=== PATIENT | female | born 1995 | race Caucasian/White ===

== ENCOUNTER 2017-09-01 06:40 | Emergency (ER) | payer BC ==
[~2017-09-01] VITALS: Ht 170.2 cm; Wt 104.5 kg
[~2017-09-01 06:40] MED LIST: BIRTH CONTROL PILLS; PROMETHAZINE12.5 M5 PO; PROVENTIL0.09 MG/A1 IH
[2017-09-01] MEDS ORDERED: TAMIFLU 75MG75 MG PO (06:48)
[2017-09-01] MEDS ORDERED: ZOLOFT 100MG100 MG PO (06:48)
[2017-09-01] MEDS ORDERED: ABILIFY5 MG PO (06:48)
[2017-09-01] MEDS ORDERED: INDERAL 10MG10 MG PO (06:49)
[2017-09-01] MEDS ORDERED: PROVENTIL0.09 MG/A1 IH (07:27)
[2017-09-01] MEDS ORDERED: TUSS PO (08:36)
[2017-09-01 09:46] VITALS: BP 129/79; PULSE 103; TEMP 98.2
== END 2017-09-01 09:52 | disposition home or self-care (01) ==
LOC: COL.ER 06:40
DX: J45.909 Unspecified asthma, uncomplicated (principal); J11.1 Influenza due to unidentified influenza virus with other respiratory manifestations; F31.9 Bipolar disorder, unspecified; Z88.2 Allergy status to sulfonamides

== ENCOUNTER 2017-10-11 09:01 | Emergency (ER) | payer BC ==
[~2017-10-11] VITALS: Ht 170.2 cm; Wt 100.9 kg
[~2017-10-11 09:01] MED LIST changes: +ABILIFY 10MG TA10 MG PO; +INDERAL 10MG10 MG PO; +TAMIFLU 75MG75 MG PO; +TUSS PO; +ZOLOFT 100MG100 MG PO
[2017-10-11 09:10] VITALS: TEMP 98.1
[2017-10-11] MEDS ORDERED: LAMICTAL XR50 MG PO (09:13)
[2017-10-11 10:12] LABS: ALANINE AMINOTRANSFERASE 44 U/L (9-52); ALBUMIN 4.4 gm/dL (3.5-5.0); ALKALINE PHOSPHATASE 68 U/L (50-136); ANION GAP 11 mmol/L (7-16); AST,SGOT 18 U/L (15-37); BILIRUBIN,TOTAL 0.6 mg/dL (0.0-1.0); BLOOD UREA NITROGEN 11 mg/dL (7-17); CALCIUM 9.2 mg/dL (8.4-10.2); CARBON DIOXIDE 24 mmol/L (22-30); CHLORIDE 106 mmol/L (98-107); CREATININE, serum 0.79 mg/dL (0.52-1.25); GLUCOSE 114 mg/dL (74-106); POTASSIUM 4.3 mmol/L (3.4-5.0); SODIUM 141 mmol/L (137-145); TOTAL PROTEIN 7.7 gm/dL (6.4-8.2)
[2017-10-11 10:12] LABS: BASO # 0.1 (0.0-0.2); BASO % 0.5 % (0.0-2.0); EOS # 0.1 (0.0-0.7); GRAN # 9.8 (1.4-6.5); GRAN % 73.8 % (42.2-75.2); HEMOGLOBIN 14.4 g/dl (12.5-16.0); LYMPH # 2.3 (1.2-3.4); LYMPH % 17.3 % (20.0-51.0); MEAN CELL VOLUME 82 fl (80.0-100.0); MEAN CORPUSCULAR HEMOGLOBIN 28 pg (27.0-31.0); MEAN CORPUSCULAR HGB CONC 34 g/dl (33.0-37.0); MEAN PLATELET VOLUME 10.3 fl (7.4-10.4); MONO # 0.9 (0.1-0.6); PLATELET COUNT 365 K/mm3 (130-400); RED BLOOD COUNT 5.12 M/mm3 (4.10-5.30); REDCELL DISTRIBUTION WIDTH-CV 13.2 % (11.5-14.5)
[2017-10-11 10:13] LABS: ACETAMINOPHEN < 10 ug/mL (10-30); ALCOHOL(ethanol),MEDICAL < 10 mg/dL; SALICYLATE < 1.0 mg/dL
[2017-10-11 10:43] LABS: COLLECTION METHOD CLEAN CATCH
[2017-10-11 10:51] LABS: PH 6 (5-8); URINE APPEARANCE Clear; URINE BACTERIA Rare /hpf; URINE BILIRUBIN Negative (NEGATIVE); URINE BLOOD 1+ (NEGATIVE); URINE COLOR Yellow; URINE GLUCOSE Negative (NEGATIVE); URINE KETONE Negative (NEGATIVE); URINE LEUKOCYTE ESTERASE Trace (NEGATIVE); URINE NITRATE Negative (NEGATIVE); URINE PROTEIN(semi-quant) Negative (NEGATIVE); URINE RBC 0-2 /hpf; URINE UROBILINOGEN Negative (NEGATIVE)
[2017-10-11 10:57] LABS: TRICYCLIC ANTIDEPRESS URINE NEGATIVE
[2017-10-11 17:11] VITALS: BP 139/93
[2017-10-11 18:00] VITALS: PULSE 106
== END 2017-10-11 18:03 ==
LOC: COL.ER 09:01
PROVIDERS: Emergency Medicine; Physician Assistant
DX: F32.9 Major depressive disorder, single episode, unspecified (principal); R45.851 Suicidal ideations; J45.909 Unspecified asthma, uncomplicated; Z87.42 Personal history of other diseases of the female genital tract

== ENCOUNTER 2017-11-28 10:23 | Emergency (ER) | payer SELFPAY ==
[~2017-11-28] VITALS: Ht 170.2 cm; Wt 107.7 kg
[~2017-11-28 10:23] MED LIST changes: +LAMICTAL XR50 MG PO
[2017-11-28 10:37] VITALS: BP 139/99; TEMP 98.9
[2017-11-28] MEDS ORDERED: DEPO-PROVE150 MG/1 M (10:47)
[2017-11-28] MEDS ORDERED: PROAIR HFA0.09 MG/AC IH (11:59)
[2017-11-28 12:24] VITALS: PULSE 88
== END 2017-11-28 12:25 | disposition home or self-care (01) ==
LOC: COL.ER 10:23
DX: J06.9 Acute upper respiratory infection, unspecified (principal); J45.909 Unspecified asthma, uncomplicated; F31.9 Bipolar disorder, unspecified

== ENCOUNTER 2018-01-09 08:11 | Emergency (ER) | payer BC ==
[~2018-01-09] VITALS: Ht 170.2 cm; Wt 104.5 kg
[~2018-01-09 08:11] MED LIST changes: +DEPO-PROVE150 MG/1 M; +PROAIR HFA0.09 MG/AC IH
[2018-01-09 08:25] VITALS: BP 138/69; TEMP 97.9
[2018-01-09] MEDS ORDERED: LEXAPRO 10MG10 MG PO (08:31)
[2018-01-09] MEDS ORDERED: PREDNISONE20 MG PO (09:23)
[2018-01-09 09:32] VITALS: PULSE 96
== END 2018-01-09 09:33 | disposition home or self-care (01) ==
LOC: COL.ER 08:11
DX: J45.901 Unspecified asthma with (acute) exacerbation (principal); J06.9 Acute upper respiratory infection, unspecified; F31.9 Bipolar disorder, unspecified

== ENCOUNTER 2018-04-11 10:48 | Emergency (ER) | payer BC ==
[~2018-04-11] VITALS: Ht 170.2 cm; Wt 104.5 kg
[~2018-04-11 10:48] MED LIST changes: +LEXAPRO 10MG10 MG PO; +PREDNISONE20 MG PO
[2018-04-11 10:53] VITALS: TEMP 99.9
[2018-04-11 11:53] LABS: BASO # 0.1 (0.0-0.2); BASO % 0.7 % (0.0-2.0); EOS # 0.1 (0.0-0.7); EOS % 1.1 % (0-4.0); GRAN # 6.7 (1.4-6.5); GRAN % 68.4 % (42.2-75.2); HEMATOCRIT 42.8 % (37.0-47.0); HEMOGLOBIN 14.8 g/dl (12.5-16.0); LYMPH # 2.3 (1.2-3.4); LYMPH % 23.7 % (20.0-51.0); MEAN CELL VOLUME 81 fl (80.0-100.0); MEAN CORPUSCULAR HEMOGLOBIN 28 pg (27.0-31.0); MEAN CORPUSCULAR HGB CONC 35 g/dl (33.0-37.0); MONO # 0.6 (0.1-0.6); MONO % 5.6 % (1.7-9.3); PLATELET COUNT 360 K/mm3 (130-400); RED BLOOD COUNT 5.32 M/mm3 (4.10-5.30); REDCELL DISTRIBUTION WIDTH-CV 12.8 % (11.5-14.5)
[2018-04-11 12:02] LABS: ALANINE AMINOTRANSFERASE 26 U/L (9-52); ALBUMIN 4.3 gm/dL (3.5-5.0); ALKALINE PHOSPHATASE 72 U/L (50-136); ANION GAP 12 mmol/L (7-16); AST,SGOT 23 U/L (15-37); BILIRUBIN,TOTAL 0.4 mg/dL (0.0-1.0); BLOOD UREA NITROGEN 10 mg/dL (7-17); CALCIUM 9.1 mg/dL (8.4-10.2); CARBON DIOXIDE 26 mmol/L (22-30); CHLORIDE 100 mmol/L (98-107); CREATININE, serum 0.75 mg/dL (0.52-1.25); GLUCOSE 97 mg/dL (74-106); POTASSIUM 4.1 mmol/L (3.4-5.0); SODIUM 138 mmol/L (137-145)
[2018-04-11 12:04] LABS: ACETAMINOPHEN < 10 ug/mL (10-30); ALCOHOL(ethanol),MEDICAL < 10 mg/dL; SALICYLATE < 1.0 mg/dL
[2018-04-11 13:46] LABS: TRICYCLIC ANTIDEPRESS URINE NEGATIVE
[2018-04-11 17:21] VITALS: BP 121/78; PULSE 75
== END 2018-04-11 17:21 | disposition home or self-care (01) ==
LOC: COL.ER 10:48
PROVIDERS: Emergency Medicine
DX: R45.851 Suicidal ideations (principal); F31.9 Bipolar disorder, unspecified; J45.909 Unspecified asthma, uncomplicated

== ENCOUNTER 2018-09-10 08:54 | Emergency (ER) | payer BC ==
[~2018-09-10] VITALS: Ht 170.2 cm; Wt 122.8 kg
[2018-09-10 09:38] LABS: BASO # 0.1 (0.0-0.2); BASO % 0.6 % (0.0-2.0); EOS # 0.3 (0.0-0.7); EOS % 2.5 % (0-4.0); GRAN # 6.2 (1.4-6.5); GRAN % 61.4 % (42.2-75.2); HEMATOCRIT 42.9 % (37.0-47.0); HEMOGLOBIN 14.7 g/dl (12.5-16.0); LYMPH # 2.8 (1.2-3.4); LYMPH % 27.5 % (20.0-51.0); MEAN CELL VOLUME 81 fl (80.0-100.0); MEAN CORPUSCULAR HEMOGLOBIN 28 pg (27.0-31.0); MEAN CORPUSCULAR HGB CONC 34 g/dl (33.0-37.0); MEAN PLATELET VOLUME 10.3 fl (7.4-10.4); MONO # 0.8 (0.1-0.6); MONO % 7.7 % (1.7-9.3); PLATELET COUNT 317 K/mm3 (130-400); RED BLOOD COUNT 5.28 M/mm3 (4.10-5.30); REDCELL DISTRIBUTION WIDTH-CV 13.1 % (11.5-14.5)
[2018-09-10 09:53] LABS: ALANINE AMINOTRANSFERASE 34 U/L (9-52); ALBUMIN 4.1 gm/dL (3.5-5.0); ALKALINE PHOSPHATASE 75 U/L (50-136); ANION GAP 9 mmol/L (7-16); AST,SGOT 50 U/L (15-37); BILIRUBIN,TOTAL 0.5 mg/dL (0.0-1.0); BLOOD UREA NITROGEN 12 mg/dL (7-17); CALCIUM 9.2 mg/dL (8.4-10.2); CARBON DIOXIDE 24 mmol/L (22-30); CHLORIDE 104 mmol/L (98-107); GLUCOSE 128 mg/dL (74-106); POTASSIUM 4.3 mmol/L (3.4-5.0); SODIUM 138 mmol/L (137-145); TOTAL PROTEIN 7.5 gm/dL (6.4-8.2)
[2018-09-10 09:56] LABS: ACETAMINOPHEN < 10 ug/mL (10-30); ALCOHOL(ethanol),MEDICAL < 10 mg/dL; SALICYLATE < 1.0 mg/dL
[2018-09-10 10:13] LABS: COLLECTION METHOD CLEAN CATCH
[2018-09-10 10:22] LABS: MUCOUS Present /lpf; PH 6 (5-8); URINE APPEARANCE Clear; URINE BACTERIA None Seen /hpf; URINE BILIRUBIN Negative (NEGATIVE); URINE BLOOD Negative (NEGATIVE); URINE COLOR Yellow; URINE GLUCOSE Negative (NEGATIVE); URINE KETONE Negative (NEGATIVE); URINE LEUKOCYTE ESTERASE 1+ (NEGATIVE); URINE NITRATE Negative (NEGATIVE); URINE PROTEIN(semi-quant) 1+ (NEGATIVE); URINE UROBILINOGEN Negative (NEGATIVE)
[2018-09-10] MEDS ORDERED: CEPHALEXIN500 M1 PO (11:17)
[2018-09-10 12:02] LABS: TRICYCLIC ANTIDEPRESS URINE NEGATIVE
[2018-09-10] MEDS ORDERED: SARAFEM20 M1 PO (15:11)
[2018-09-10] MEDS ORDERED: ZYPREXA 5MG5 MG PO (15:12)
[2018-09-10 18:14] VITALS: BP 149/91; PULSE 130; TEMP 99.9
== END 2018-09-10 18:14 ==
LOC: COL.ER 08:54
PROVIDERS: Physician Assistant
DX: R45.851 Suicidal ideations (principal); N39.0 Urinary tract infection, site not specified; F31.9 Bipolar disorder, unspecified; F12.10 Cannabis abuse, uncomplicated; Z88.2 Allergy status to sulfonamides

== ENCOUNTER 2019-05-08 08:24 | Emergency (ER) | payer BC ==
[~2019-05-08] VITALS: Ht 170.2 cm; Wt 118.2 kg
[~2019-05-08 08:24] MED LIST changes: +CEPHALEXIN500 M1 PO; +SARAFEM20 M1 PO; +ZYPREXA 5MG5 MG PO
[2019-05-08 08:28] VITALS: BP 131/83; TEMP 99.2
[2019-05-08] MEDS ORDERED: DEPAKOTE 125MG125 M1 PO (08:33)
[2019-05-08] MEDS ORDERED: NEURONTIN300 MG/CAP PO (08:34)
[2019-05-08 09:40] LABS: BILIRUBIN,TOTAL 0.3 mg/dL (0.0-1.0); C-REACTIVE PROTEIN 2.1 mg/dL (0.0-0.9); CREATININE, serum 0.7 (0.52-1.25); POTASSIUM 4.2 mmol/L (3.4-5.0); TOTAL PROTEIN 7.4 gm/dL (6.4-8.2)
[2019-05-08 09:41] LABS: BASO # 0.1 (0.0-0.2); BASO % 0.6 % (0.0-2.0); EOS # 0.1 (0.0-0.7); EOS % 1.2 % (0-4.0); GRAN # 6.4 (1.4-6.5); GRAN % 64.4 % (42.2-75.2); HEMATOCRIT 40.6 % (37.0-47.0); HEMOGLOBIN 13.6 g/dl (12.5-16.0); LYMPH # 2.7 (1.2-3.4); LYMPH % 26.9 % (20.0-51.0); MEAN CELL VOLUME 82 fl (80.0-100.0); MEAN CORPUSCULAR HEMOGLOBIN 28 pg (27.0-31.0); MEAN CORPUSCULAR HGB CONC 34 g/dl (33.0-37.0); MEAN PLATELET VOLUME 10.9 fl (7.4-10.4); MONO # 0.7 (0.1-0.6); MONO % 6.6 % (1.7-9.3); PLATELET COUNT 317 K/mm3 (130-400); RED BLOOD COUNT 4.95 M/mm3 (4.10-5.30); REDCELL DISTRIBUTION WIDTH-CV 13.2 % (11.5-14.5)
[2019-05-08 10:26] LABS: COLLECTION METHOD CLEAN CATCH
[2019-05-08 10:34] LABS: PH 7 (5-8); SQUAMOUS EPITHELIAL 0-2 /hpf; URINE APPEARANCE Clear; URINE BACTERIA None Seen /hpf; URINE BILIRUBIN Negative (NEGATIVE); URINE BLOOD Negative (NEGATIVE); URINE COLOR Yellow; URINE GLUCOSE Negative (NEGATIVE); URINE KETONE Negative (NEGATIVE); URINE LEUKOCYTE ESTERASE Trace (NEGATIVE); URINE NITRATE Negative (NEGATIVE); URINE PROTEIN(semi-quant) Negative (NEGATIVE); URINE RBC None Seen /hpf; URINE UROBILINOGEN Negative (NEGATIVE)
[2019-05-08] MEDS ORDERED: DRAMAMINE LESS25 MG PO (12:21)
[2019-05-08] MEDS ORDERED: ZOFRAN ODT4 MG PO (12:21)
[2019-05-08 12:40] VITALS: PULSE 82
== END 2019-05-08 12:40 ==
LOC: COL.ER 08:24
PROVIDERS: Physician Assistant
DX: R42 Dizziness and giddiness (principal); F31.9 Bipolar disorder, unspecified; Z88.2 Allergy status to sulfonamides
CPT/HCPCS: J1885; J2405; J7030

== ENCOUNTER 2024-03-26 10:02 | Emergency (ER) | payer OTHER ==
[~2024-03-26] VITALS: Ht 170.2 cm; Wt 97.7 kg
[~2024-03-26 10:02] MED LIST changes: +CEFTIN 250250 MG/TAB PO; +DEPAKOTE 125MG125 M1 PO; +DRAMAMINE LESS25 MG PO; +NEURONTIN300 MG/CAP PO; +ZOFRAN ODT4 MG PO
[2024-03-26 10:19] VITALS: BP 117/77; TEMP 99.6
[2024-03-26] MEDS ORDERED: AMOXICILLIN 8751 TAB PO (11:51)
[2024-03-26 12:18] VITALS: PULSE 94
== END 2024-03-26 12:22 | disposition home or self-care (01) ==
LOC: COL.ER 10:02
DX: J32.9 Chronic sinusitis, unspecified (principal); J45.909 Unspecified asthma, uncomplicated; Z87.891 Personal history of nicotine dependence

== ENCOUNTER 2024-05-07 12:38 | Emergency (ER) | payer SELFPAY ==
[~2024-05-07] VITALS: Ht 170.2 cm; Wt 97.7 kg
[~2024-05-07 12:38] MED LIST changes: +AMOXICILLIN 8751 TAB PO
[2024-05-07 12:43] VITALS: TEMP 98.3
[2024-05-07] MEDS ORDERED: Morphine 4 MG/ML VIAL IV ONE (13:00)
[2024-05-07] MEDS ORDERED: NS 1,000 ML IV ONE (13:00)
[2024-05-07] MEDS ORDERED: Ondansetron 4 MG/2 ML VIAL IV ONE (13:00)
[2024-05-07 13:13] LABS: BASO # 0.1 K/mm3 (0.0-0.2); BASO % 0.7 % (0.0-2.0); EOS # 0.1 K/mm3 (0.0-0.7); EOS % 0.9 % (0.0-4.0); GRAN # 7.6 K/mm3 (1.4-6.5); GRAN % 71.7 % (42.2-75.2); HEMATOCRIT 46.1 % (37.0-47.0); HEMOGLOBIN 15.2 g/dl (12.5-16.0); LYMPH # 2.1 K/mm3 (1.2-3.4); LYMPH % 20.1 % (20.0-51.0); MEAN CELL VOLUME 84 fl (80.0-100.0); MEAN CORPUSCULAR HEMOGLOBIN 28 pg (27-31); MEAN CORPUSCULAR HGB CONC 33 g/dl (33.0-37.0); MEAN PLATELET VOLUME 10.2 fl (7.4-10.4); MONO # 0.7 K/mm3 (0.1-0.6); MONO % 6.3 % (1.7-9.3); PLATELET COUNT 366 K/mm3 (130-400); RED BLOOD COUNT 5.47 M/mm3 (4.10-5.30); REDCELL DISTRIBUTION WIDTH-CV 13.2 % (11.5-14.5)
[2024-05-07 13:33] LABS: ALBUMIN 4.2 g/dL (3.5-5.0); BILIRUBIN,TOTAL 0.5 mg/dL (0.2-1.2); C-REACTIVE PROTEIN 0.43 mg/dL (0.00-0.50); CALCIUM 9.9 mg/dL (8.4-10.2); CREATININE, serum 1.19 mg/dL (0.57-1.11); POTASSIUM 4.1 mEq/L (3.5-4.5); TOTAL PROTEIN 7.9 g/dl (6.2-8.1)
[2024-05-07 13:54] LABS: COLLECTION METHOD CLEAN CATCH
[2024-05-07 13:59] LABS: PH 7.5 (5.0-8.5); URINE APPEARANCE CLOUDY (CLEAR/HAZY); URINE BLOOD NEGATIVE (NEGATIVE); URINE COLOR YELLOW (YELLOW); URINE GLUCOSE NEGATIVE (NEGATIVE); URINE KETONE NEGATIVE (NEGATIVE); URINE NITRATE NEGATIVE (NEGATIVE); URINE PROTEIN(semi-quant) NEGATIVE (NEGATIVE); URINE UROBILINOGEN 0.2 E.U/dL (0.2-1.0)
[2024-05-07] MEDS ORDERED: Iohexol 300 - 100 ML VIAL IV ONE (14:38)
[2024-05-07] MEDS ORDERED: NS 100 ML IV SCH (14:39)
[2024-05-07 15:20] VITALS: BP 140/94; PULSE 80
== END 2024-05-07 15:20 | disposition home or self-care (01) ==
LOC: COL.ER 12:38
PROVIDERS: Nurse Practitioner
DX: R10.31 Right lower quadrant pain (principal); R11.10 Vomiting, unspecified; Z87.42 Personal history of other diseases of the female genital tract
CPT/HCPCS: J2270; J2405; J7030; Q9967